=== PATIENT | female | born 1995 | race Caucasian/White ===

== ENCOUNTER 2018-06-01 09:18 | Inpatient (IN) ==
[~2018-06-01 09:18] MED LIST: OXYTOCIN 20 UNITS in RINGER'S SOLUTION,LACTATED 1,000 ML IV ONE; RINGER'S SOLUTION,LACTATED 1,000 ML IV PRN; ceFAZolin SODIUM/DEXTROSE,ISO 2 GM/50 ML BAG IV ONE
[2018-06-01 11:39] LABS: Hematocrit 33.5 % (37.0-47.0); Hemoglobin 11.2 gm/dL (12.5-16.0); Mean Cell Volume 91.3 fl (78-100); Mean Corpuscular Hemoglobin 30.5 pg (27-31); Mean Corpuscular Hgb Conc 33.4 g/dl (32-36); Mean Platelet Volume 9.9 fl (8-12.5); Neutrophil # 10.4 K/mm3 (1.3-6.0); Neutrophil % 79.6 % (42-75.0); Platelet Count 294 K/mm3 (150-450); Red Blood Count 3.67 M/mm3 (4.2-5.4); Red Cell Distribution Width 13.2 % (11.5-14.0); White Blood Count 13.1 K/mm3 (4.0-10.5)
[2018-06-01 12:05] LABS: Cocaine Ur Negative (NEGATIVE); Urine Barbiturate Negative (NEGATIVE); Urine Benzodiazepines Negative (NEGATIVE); Urine Opiates Negative (NEGATIVE); Urine PCP Negative (NEGATIVE); Urine THC Negative (NEGATIVE)
--- NOTE | 2018-06-01 12:11 | ANES ---
Anesthesia Pre Procedure Eval Vitals/Labs: Last Vital Signs Temp 36.6 C 06/01/18 09:56 Pulse 101 H 06/01/18 09:56 Resp 18 06/01/18 09:56 BP 138/74 06/01/18 09:56 Pulse Ox 98 06/01/18 09:56 HOME MEDICATIONS vitamin,calcium,cjrwisxu-cufn-jocdn acid tablet 1 tab PO DAILY 01/27/18 [Last Taken 05/31/18 09:00] Allergies/Adverse Reactions: Allergies Allergy/AdvReac Type Severity Reaction Status Date / Time No Known Allergies Allergy Verified 05/24/18 11:31 - Planned Procedure Planned Procedure: Section Medication List Reviewed:: Yes Allergies Verified: Yes Medical History (Last Reviewed 06/01/18 @ 12:10 by Jarek Simmons CRNA) Depression Onset Date: Unknown Tobacco abuse Onset Date: Unknown Acute pansinusitis Onset Date: Unknown No significant past surgical history Family History (Last Reviewed 06/01/18 @ 12:10 by Jarek Simmons CRNA) Father Hypertension COPD (chronic obstructive pulmonary disease) Mother Schizophrenia - Family Anesthesia History Family History:: no untoward family reactions to anesthesia - Airway/Neck/Teeth Within Normal Limits:: Yes Teeth Condition: Intact Neck Exam: full range of motion, normal inspection Mallampatti Score: 2 Thyromental (T-M) distance: > 6 cm Mandibulo Hyoid distance: > 3 cm - Respiratory Respiratory: lungs clear Smoking Status: Current every day smoker Discussed smoking cessation including day of surgery: Yes Sleep Apnea currently treated: No Sleep Apnea by current assessment: No - Cardiovascular Patient History - Cardiac/Respiratory: No pertinent hx Tolerates Activity: Fair Heart Sounds: S1 & S2, Regular - Anesthesia Assessment and Plan ASA Class: PS, II Anesthesia Type Plan: Spinal - Bilat TAP block for postop analgesia
[2018-06-01] MEDS ORDERED: TERBUTALINE SULFATE 1 MG/ML VIAL ONE (12:28)
[2018-06-01] MEDS ORDERED: OXYTOCIN 20 UNITS in RINGER'S SOLUTION,LACTATED 1,000 ML IV ONE (13:30)
[2018-06-01] MEDS ORDERED: ceFAZolin SODIUM/DEXTROSE,ISO 2 GM/50 ML BAG IV ONE (13:30)
[2018-06-01] MEDS ORDERED: RINGER'S SOLUTION,LACTATED 1,000 ML IV ONE (13:55)
[2018-06-01] MEDS ORDERED: ONDANSETRON HCL/PF 2 MG/ML VIAL IV PRN (13:55)
[2018-06-01] MEDS ORDERED: SENNOSIDES 8.6 MG TABLET PO PRN (13:55)
[2018-06-01] MEDS ORDERED: oxyCODONE HCL/ACETAMINOPHEN 1 TAB TABLET PO PRN (13:55)
[2018-06-01] MEDS ORDERED: BISACODYL 10 MG SUPP.RECT RC PRN (13:55)
[2018-06-01] MEDS ORDERED: SIMETHICONE 80 MG TAB.CHEW PO PRN (13:55)
--- NOTE | 2018-06-01 13:55 | OR ---
Operative Report - Dictated Report Narrative: DATE OF PROCEDURE: 06/01/2018 PROCEDURE: 1. Primary low transverse section ANESTHESIA: Epidural. PREOPERATIVE DIAGNOSES: 1. Intrauterine at 39 0/7 weeks 2. Breech presentation, failed external cephalic version POSTOPERATIVE DIAGNOSES: 1. Intrauterine at 39 0/7 weeks 2. Breech presentation, failed external cephalic version SURGEON: Radha Burger M.D. FURNITURE PAINTER: Paul FINDINGS: 1. Male in rosana breech presentation. Clear amniotic fluid. Weight pending, 9/9, Time of delivery: 12:59 2. Normal uterus, and normal bilateral ovaries and tubes SPECIMENS: none DRAIN: Bryant to gravity. URINE OUTPUT: 50 ml. BLOOD LOSS: 250 ml. IV FLUIDS: 1500 ml COMPLICATIONS: None. Description of Operative Procedure: The patient consented prior to the operation and was taken to the operating room. Spinal anesthesia was performed without complications. The patient was then placed in the dorsal supine position with leftward tilt. Sequential compression device was placed on the lower extremities and a Bryant catheter was placed into the bladder using sterile technique. Two grams of Ancef was given at the start of anesthesia. The abdomen was prepped with Chloraprep and draped in the usual sterile fashion. A time-out procedure was conducted to confirm the correct patient for the correct procedure. Anesthesia was tested and found adequate. A Pfannenstiel incision was marked and made with a scalpel. The incision was carried through the subcutaneous layer to the fascia. The fascia was nicked at the midline and extended laterally with Brandt scissors. The upper edge of the fascia incision was grasped with two Kerrie clamps, elevated, and the underlying rectus muscles were dissected off. The Kerrie clamps were repositioned to the lower edge of the fascia incision, which was tented up and dissected off from the rectus muscles. The rectus muscles were in the midline. The peritoneum was entered bluntly with a finger. The peritoneal incision was extended superiorly and inferiorly with good visualization of the bladder. A bladder blade was inserted. The vesicouterine peritoneum was identified, grasped with a smooth pick-ups, and entered sharply with Matzenbaum scissors. The incision was extended laterally, and a bladder flap was created. The bladder blade was repositioned. The lower uterine segment was incised in a transverse fashion with the scalpel. The incision was extended laterally by stretching. The bladder blade was removed. The amniotic sac was ruptured with clear fluid. The baby was in rosana breech presentation. The buttock was elevated through the incision and pulled with fingers hooked under the inguinal regions and delivered to the level of umbilicus. The legs were flexed and delivered. The pelvis was held and the baby was turned sacral anterior and delivered to the level of shoulders. The arms are swept across the chest and delivered. The head delivered without difficulty. Baby cried immediately after . The cord was clamped and cut. The baby was handed off to the nurse and the biztalk consultant in attendance. Cord blood was obtained. The placenta was removed manually. The uterus was exteriorized, and cleared off clots and membrane. The uterine incision was closed with 0 vicryl in a running-lock fashion. A second imbricating layer was placed with 2-0 Vicryl in a continuous non-lock fashion. Good hemostasis and reapproximation were obtained. The posterior cul-de-sac was cleared off clots and fluid. The uterus was returned to the abdomen. The gutters were cleared of blood clots and fluid. The peritoneum was closed with 2-0 Vicryl. The rectus muscle was inspected and found hemostatic. The fascia was reapproximated with 0 Vicryl in running fashion. The subcutaneous layer was irrigated with saline. The subcutaneous layer was closed with 2-0 vicryl interruptedly. The skin was closed with 3-0 Monocryl suture in a subcuticular fashion. Benzoin was applied to the incision edges. The incision was covered with Steri strips, Telfa, ABD and adhesive pressure dressing tape. The patient tolerated the procedure well. Sponge, lap, needle and instrument counts were correct x 2. The patient was taken to the recovery room in stable condition. Radha Burger MD History for MU Definition: * The number of deliveries resulting in a live the patient experienced prior to current hospitalization * The previous delivery of live twins or any live multiple gestation is considered one live event. *If primagravida or nulliparous is documented select zero for the number of previous live births. Live Events: 0
--- NOTE | 2018-06-01 14:39 | ANES ---
Post Anesthesia Discharge - Transfer of Care Transfer of Care handoff given to nurse: Yes - Discharge from PACU Discharge from PACU when meets criteria: Yes
--- NOTE | 2018-06-01 14:40 | ANES ---
Post Anesthesia Assessment - Vital Signs Vitals: Last Vital Signs Temp 36.5 C 06/01/18 14:15 Pulse 98 06/01/18 14:15 Resp 20 06/01/18 14:15 BP 107/73 06/01/18 14:15 Pulse Ox 99 06/01/18 14:15 Airway Patency: Normal - Mental Status Level Of Consciousness: Awake - Pain Level Pain Score: 4 - N/V Assessment Nausea/Vomiting Presence: None Dehydration:: No
--- NOTE | 2018-06-01 14:44 | ANES ---
Anesthesia Procedure Note Procedure Note: ANESTHESIA PROCEDURE NOTE Date of procedure: 06/01/2018. Time of procedure:[]. 1400 Performed by: Acosta Simmons CRNA Ceramic Sprayer: [] Layla Benton RN . Preprocedure diagnosis: []. Status post section. Desire for postoperative analgesia Post procedure diagnosis: Same. Procedure:[] Bilateral tap block Indications: []. Post operative analgesia Findings: [] Patient placed in a supine position and PACU. Patient's right abdominal wall prepped with ChloraPrep. Ultrasound was utilized to identify fascial layer between internal oblique and trans-abdominus muscles. A 20-gauge 4 inch regional block needle advanced under ultrasound guidance until tip of needle was positioned just posterior to fascial layer. 20 mL of 0.25% Marcaine with epinephrine 1 200,000 was injected with adequate spread of local anesthesia noted. Procedure was then repeated on patient's left side. EBL: Minimal. Fluids: N/A. Specimen: N/A. Post procedure condition: The patient tolerated the procedure well. No complications were noted. Thank you for this consultation Acosta Simmons CRNA
[2018-06-01] MEDS: IBUPROFEN 800 MG TABLET PO PRN ×2 (15:12→22:50)
[2018-06-01 16:17] LABS: Random Urine Total Protein 24.1 mg/dL (0-12)
[2018-06-01] MEDS: oxyCODONE HCL/ACETAMINOPHEN 1 TAB TABLET PO PRN ×2 (19:43→22:50)
[2018-06-01] MEDS: DOCUSATE SODIUM 100 MG CAPSULE PO SCH (20:58)
[2018-06-02] MEDS: oxyCODONE HCL/ACETAMINOPHEN 1 TAB TABLET PO PRN ×7 (02:21→23:34)
[2018-06-02] MEDS: IBUPROFEN 800 MG TABLET PO PRN ×3 (06:17→19:25)
[2018-06-02] MEDS: DOCUSATE SODIUM 100 MG CAPSULE PO SCH ×2 (08:30→20:30)
[2018-06-02 09:33] LABS: Hematocrit 33.6 % (37.0-47.0); Hemoglobin 11.1 gm/dL (12.5-16.0); Mean Cell Volume 92.3 fl (78-100); Mean Corpuscular Hemoglobin 30.5 pg (27-31); Mean Platelet Volume 9.8 fl (8-12.5); Neutrophil # 9.3 K/mm3 (1.3-6.0); Neutrophil % 73.9 % (42-75.0); Platelet Count 311 K/mm3 (150-450); Red Blood Count 3.64 M/mm3 (4.2-5.4); Red Cell Distribution Width 13.6 % (11.5-14.0); White Blood Count 12.5 K/mm3 (4.0-10.5)
[2018-06-02 09:49] LABS: Albumin * 2.3 gm/dl (3.4-5.0); Anion Gap 12.2 mmol/L (6.8-13.8); Bilirubin, Total 0.2 mg/dL (0.0-1.1); Ca. Corrected For Albumin 9.4 mg/dL (8.4-10.2); Calcium * 8.4 mg/dL (7.9-10.9); Carbon Dioxide 23.1 mmol/L (24-32.6); Potassium 4.3 mmol/L (3.4-4.6); Total Protein 6.2 gm/dL (6.2-8.2)
--- NOTE | 2018-06-02 13:38 | PN ---
Subjective - Date and Time Seen Date: 06/02/18 Subjective Narrative: Post op day 1, s/p primary c/s for breech, failed ECV. no complaints. BP was high yesterday. PIH labs normal. BP normal today. denies headache or blurry vision. ambulating, and tolerating diet well. pain controlled. lochia small. . Objective - Vitals Vitals: Last Vital Signs Temp 37 C 06/02/18 10:40 Pulse 106 H 06/02/18 10:40 Resp 16 06/02/18 10:40 BP 122/81 06/02/18 10:40 Pulse Ox 98 06/02/18 10:40 - Abnormal Lab Findings Abnormal Lab Findings: Abnormal Lab Results 06/01/18 06/02/18 06/02/18 Range/Units 11:30 09:15 09:15 WBC 12.5 H (4.0-10.5) K/mm3 RBC 3.64 L (4.2-5.4) M/mm3 Hgb 11.1 L (12.5-16.0) gm/dL Hct 33.6 L (37.0-47.0) % Immature Gran % (Auto) 0.60 H (0.001-0.429) % Immature Gran # (Auto) 0.08 H (0.000-0.0310) K/mm3 Lymphocytes % 18.1 L (20-51) % Neutrophils # 9.3 H (1.3-6.0) K/mm3 Carbon Dioxide 23.1 L (24-32.6) mmol/L ALT 12 L (19-67) U/L Albumin 2.3 L (3.4-5.0) gm/dl U Random Total Protein 24.1 H (0-12) mg/dL - Exam Constitutional: Present: Alert, Oriented x3, Cooperative Respiratory: Present: no respiratory distress Abdomen: Present: soft, nondistended, other - fundus firm and below umbilicus. incision dry and clean with steri strips intact Extremity: Present: no calf tenderness, pedal edema - 1+ bilaterally Skin Exam: Present: normal color, warm/dry, no cyanosis Appearance: Present: appropriate appearance Eye contact: Present: cooperative, good eye contact Cauti Physician Documentation - Urinary Catheter Management Urethral (Bryant) Date of Insertion: 06/01/18 Time of Insertion: 12:00 Date of Removal: 06/02/18 Time of Removal: 01:05 Assessment/Plan Plan Narrative: A: Post op day 1, s/p primary c/s, stable and well. Plan: routine post op and care ambulation encouraged. Radha Burger MD
[2018-06-03] MEDS: IBUPROFEN 800 MG TABLET PO PRN ×3 (05:00→17:56)
[2018-06-03] MEDS: oxyCODONE HCL/ACETAMINOPHEN 1 TAB TABLET PO PRN ×6 (05:00→21:14)
[2018-06-03] MEDS: DOCUSATE SODIUM 100 MG CAPSULE PO SCH ×2 (08:04→21:14)
--- NOTE | 2018-06-03 13:24 | PN ---
Subjective - Date and Time Seen Date: 06/03/18 Subjective Narrative: post op day 2, s/p primary c/s for breech doing well. no BM, but passed gas. ambulating and tolerating diet well. pain controlled. . lochia small. Objective - Vitals Vitals: Last Vital Signs Temp 36.7 C 06/03/18 12:15 Pulse 102 H 06/03/18 12:15 Resp 18 06/03/18 12:15 BP 124/70 06/03/18 12:15 Pulse Ox 98 06/03/18 12:15 - Exam Constitutional: Present: Alert, Oriented x3, Cooperative Respiratory: Present: no respiratory distress Abdomen: Present: soft, nondistended, other - fundus firm and below umbilicus. incision dry and clean. Extremity: Present: no calf tenderness, lower extremity edema - 1+ bilaterally Skin Exam: Present: normal color, warm/dry, no cyanosis Appearance: Present: appropriate appearance Eye contact: Present: cooperative, good eye contact, normal speech Cauti Physician Documentation - Urinary Catheter Management Urethral (Bryant) Date of Insertion: 06/01/18 Time of Insertion: 12:00 Date of Removal: 06/02/18 Time of Removal: 01:05 Assessment/Plan Plan Narrative: A: Post op day 2, s/p primary c/s, stable and well. Plan: routine post op and care. ambulation encouraged. Radha Burger MD
[2018-06-04] MEDS: oxyCODONE HCL/ACETAMINOPHEN 1 TAB TABLET PO PRN ×4 (02:03→12:56)
[2018-06-04] MEDS: IBUPROFEN 800 MG TABLET PO PRN ×2 (02:03→09:39)
--- NOTE | 2018-06-04 09:22 | PN ---
Subjective - Date and Time Seen Date: 06/04/18 Subjective Narrative: post op day 3, s/p primary c/s for breech doing well. no bowel movement, but passed gas. ambulating and tolerating diet well. . normal lochia. Objective - Vitals Vitals: Last Vital Signs Temp 36.9 C 06/04/18 02:13 Pulse 117 H 06/04/18 02:13 Resp 16 06/04/18 02:13 BP 128/85 06/04/18 02:13 Pulse Ox 97 06/04/18 02:13 - Exam Constitutional: Present: Alert, Oriented x3, Cooperative Respiratory: Present: no respiratory distress Abdomen: Present: soft, nontender, nondistended, other - fundus firm and below umbilicus. incision dry and clean with steri strips Extremity: Present: normal range of motion, no calf tenderness, pedal edema - 1+ bilaterally Skin Exam: Present: normal color, warm/dry, no cyanosis Appearance: Present: appropriate appearance Eye contact: Present: cooperative, good eye contact, normal speech Cauti Physician Documentation - Urinary Catheter Management Urethral (Bryant) Date of Insertion: 06/01/18 Time of Insertion: 12:00 Date of Removal: 06/02/18 Time of Removal: 01:05 Assessment/Plan Plan Narrative: A: post op day 3, s/p primary c/s for breech, stable and well. Plan: will discharge home today. Radha Burger MD
[2018-06-04] MEDS: DOCUSATE SODIUM 100 MG CAPSULE PO SCH (09:39)
[2018-06-04 10:32] VITALS: BP 137/57
== END 2018-06-04 15:55 | disposition home or self-care (01) | DRG 787 ==
LOC: MS 09:18
PROVIDERS: ADMIT Obstetrics & Gynecology; ATTEND Obstetrics & Gynecology
CPT/HCPCS: 36415; 59025; 80053; 80307; 82570; 84155; 84156; 85025; 86850; 86870; 86900; G0479